=== PATIENT | female | born 1985 | race Caucasian/White ===

== ENCOUNTER 2017-04-25 06:24 | Emergency (ER) | payer MEDICAID, OTHER ==
[~2017-04-25] VITALS: Ht 144.8 cm; Wt 89.0 kg
[~2017-04-25 06:24] MED LIST: IBUP400T22 PO; NITR-58 PO; PHEN-538 PO
[2017-04-25 06:26] VITALS: Ht 144.8 cm; Wt 89.0 kg
[2017-04-25] MEDS ORDERED: SOD CHLORIDE 0.9% 1,000 ML IV STA (06:47)
[2017-04-25] MEDS ORDERED: KETOROLAC 30 MG INJ IV STA (06:47)
--- NOTE | 2017-04-25 06:54 | ERD ---
ER Documentation Chief Complaint Date/Time DATE: 04/25/17 TIME: 06:49 Chief Complaint back pain and bodyaches x 2 days HPI 31-year-old female presents to the emergency department complaining of generalized myalgias for the past 48 hours. She states she has had increased tiredness diffuse cramping of her upper and lower extremities, tactile fever with no shaking or chills, bilateral pulsating headache with no neck pain or changes in vision. She denies any frequency urgency or dysuria. She also complains of lower back pain but denies any changes in her bladder or bowel frequency. She denies any saddle anesthesia. She denies any trauma to her lower back. She states the pain is a dull achy sensation in the bilateral lumbar region similar to her menstrual cramps as she just began her menstrual cycle today. She also is complaining of a sore throat which is progressive worsened over the past 2 days and nonproductive cough. she denies any recent travel. She does work at [employer] has multiple sick contacts. She took an Excedrin P.M. roughly 12 hours prior to arrival. ROS All systems reviewed and are negative except as per history of present illness. PMhx/Soc Medical and Surgical Hx: pt denies Medical Hx History of Surgery: Yes () Anesthesia Reaction: No Hx Alcohol Use: No Hx Substance Use: No Hx Tobacco Use: No Smoking Status: Never smoker Physical Exam Vitals Vital Signs Date Time Temp Pulse Resp B/P Pulse Ox O2 Delivery O2 Flow Rate FiO2 04/25/17 06:26 97.9 87 16 126/69 100 Physical Exam Constitutional:Well-developed. Well-nourished. HEENT:Normocephalic. Atraumatic.Pupils were equal round reactive to light. Very dry mucous membranes. Enlargement of both tonsils with enlargement of the left tonsil and tonsillar exudates on the left. Neck: No nuchal rigidity. Left anterior lymphadenopathy. No posterior cervical spine tenderness or step-offs. Respiratory: Not using accessory muscles of respiration.Lungs were clear to auscultation bilaterally. No rhonchi. No rales. No wheezing. Cardiovascular: Regular rate regular rhythm.No murmurs. No rubs were appreciated.S1, S2 normal. Distal pulses are palpable 2+ bilaterally. GI: Abdomen was soft. Nontender. Non Distended. No pulsatile abdominal masses or bruits. No rebound. No guarding. Bowel sounds were present and normal. Muscle skeletal: Full range of motion of both the upper and lower extremities bilaterally.Normal muscle tone.No assymetrical calf tenderness or swelling. Skin: No petechia, no purpura. No lesions on the palms or the soles of the feet. No maculopapular rash. NEURO: Patient was alert, awake, orientated x3.No facial droop. Gait observed and normal with no ataxia.Speech had regular rate and rhythm. No focal neurological deficits. Procedures/MDM This is a 31-year-old female who presented to the emergency department with generalized myalgias and 3 of the 4 center criteria to suggest Streptococcus pharyngitis. The patient had IV access established by nursing staff due to clinical dehydration. She received a liter bolus of 0.9 normal saline and Toradol. The patient had no evidence of pyelonephritis. I did feel her back pain could be exacerbated by the pharyngitis as well as her dysmenorrhea. She had no signs of cauda equina syndrome, discitis or osteomyelitis. The patient was given Bicillin in the emergency department. She will be sent home with Motrin. The patient was discharged home in fair condition. They were instructed to return to the emergency department at any time if there was any worsening of their condition. The patient stated they would follow up with their PCP in the next 24-48 hours to initiate a suitable medication regimen under the care of their PCP as well as to allow their PCP to monitor any drug reactions. The patient was discharged home with prescriptions after they gave informed consent to the new medication. They were also fully informed by myself on the adverse effects and adverse drug interactions in order to provide adequate safeguards to prevent possible adverse reactions to medications. Departure Diagnosis: Primary Impression: Strep pharyngitis Additional Impression: Myalgia Condition: Fair NIKKI BOYD Apr 25, 2017 06:54
[2017-04-25] MEDS ORDERED: PENICILLIN G BENZ 1.2 MIL UNIT SYG IM ONE (07:00)
[2017-04-25 07:29] LABS: ADD UMIC YES; UR ASCORBIC ACID NEGATIVE (NEGATIVE); UR BACTERIA FEW /HPF (NONE SEEN); UR BILIRUBIN (Dip) NEGATIVE (NEGATIVE); UR BLOOD (Dip) 3+ mg/dL (NEGATIVE); UR CLARITY SLIGHTLY CLOUDY (CLEAR); UR COLOR YELLOW (YELLOW); UR GLUCOSE (Dip) NEGATIVE (NEGATIVE); UR KETONES (Dip) NEGATIVE (NEGATIVE); UR LEUKOCYTE ESTERASE (Dip) NEGATIVE Leu/ul (NEGATIVE); UR NITRITE (Dip) NEGATIVE (NEGATIVE); UR RBC > 182 /HPF (0-5); UR SQUAMOUS EPITHELIAL CELL FEW /HPF (FEW); UR TOTAL PROTEIN (Dip) NEGATIVE (NEGATIVE); UR UROBILINOGEN (Dip) NEGATIVE (NEGATIVE)
[2017-04-25 07:32] LABS: BASOPHILS % 0.8 % (0.0-2.0); EOSINOPHILS # 0.2 10^3/ul (0.0-0.5); HEMATOCRIT 35.5 % (37.0-47.0); HEMOGLOBIN 11.5 g/dl (12.0-16.0); LYMPHOCYTES # 1.7 10^3/ul (0.8-2.9); LYMPHOCYTES % 32.1 % (15.0-51.0); MEAN CORPUSCULAR HEMOGLOBIN 26.9 pg (29.0-33.0); MEAN CORPUSCULAR HGB CONC 32.4 g/dl (32.0-37.0); MEAN CORPUSCULAR VOLUME 82.9 fl (82.0-101.0); MEAN PLATELET VOLUME 10.5 fl (7.4-10.4); MONOCYTE # 0.5 10^3/ul (0.3-0.9); MONOCYTES % 8.6 % (0.0-11.0); NEUTROPHIL # 2.9 10^3/ul (1.6-7.5); NEUTROPHILS % 54.7 % (39.0-77.0); PLATELET COUNT 267 10^3/UL (140-415); RED BLOOD COUNT 4.28 10^6/ul (4.20-5.40); RED CELL DISTRIBUTION WIDTH 13.8 % (11.5-14.5); WHITE BLOOD COUNT 5.3 10^3/ul (4.8-10.8)
[2017-04-25 07:48] LABS: ALBUMIN 3.9 g/dl (3.3-4.9); ALBUMIN/GLOBULIN RATIO 1.25; BILIRUBIN,INDIRECT 0.3 mg/dl (0-1.1); BILIRUBIN,TOTAL 0.3 mg/dl (0.2-1.3); CALCIUM 8.1 mg/dl (8.4-10.2); CREATININE 0.58 mg/dl (0.44-1.00)
[2017-04-25] MEDS ORDERED: CEPH-443 PO (08:25)
[2017-04-25] MEDS ORDERED: IBUP800T25 PO (08:25)
[2017-04-25] MEDS ORDERED: CEFAZOLIN 1 GM/50 ML (PMX) 50 ML IVPB SCH (08:30)
== END 2017-04-25 11:13 | disposition home or self-care (01) ==
LOC: FTE 06:24
DX: J02.0 Streptococcal pharyngitis (principal)
CPT/HCPCS: 80053; 81001; 85025; 87086; 96372; 96374; 96375; J0561; J0690; J1885; J7030; Z7502

== ENCOUNTER 2017-04-27 21:15 | Emergency (ER) | payer OTHER ==
[~2017-04-27] VITALS: Ht 152.4 cm; Wt 88.0 kg
[~2017-04-27 21:15] MED LIST changes: +CEPH-443 PO; +IBUP800T25 PO
[2017-04-27 21:22] VITALS: Ht 152.4 cm; Wt 88.0 kg
[2017-04-27] MEDS ORDERED: ONDANSETRON (ODT) 4 MG TAB ODT STA (22:07)
[2017-04-27] MEDS ORDERED: ACETAMINOPHEN 500 MG TAB PO STA (22:07)
[2017-04-27] MEDS ORDERED: AMOX500C2 PO (22:13)
[2017-04-27] MEDS ORDERED: ONDA4TAB14 PO (22:13)
--- NOTE | 2017-04-27 22:13 | ERD ---
ER Documentation Chief Complaint Date/Time DATE: 04/27/17 TIME: 22:10 Chief Complaint sore throat w/ x 1 day HPI Patient is a 31-year-old female who presents with sore throat and left ear pain that she has presents today. Also admits to fever. Some nausea but no vomiting. Last menstrual period just finished 2 days ago. She took Excedrin earlier today. No cough. ROS All systems reviewed and are negative except as per history of present illness. Medications Home Meds Active Scripts Ibuprofen* (Ibuprofen*) 800 Mg Tablet, 800 MG PO Q8, #20 TAB Prov:DEB,NIKKI 04/25/17 Cephalexin* (Keflex*) 500 Mg Capsule, 500 MG PO QID for 10 Days, CAP Prov:DEB,NIKKI 04/25/17 Phenazopyridine Hcl* (Pyridium*) 200 Mg Tab, 200 MG PO TID Y for URINARY PAIN, # 6 TAB Prov:RAYMOND,JANENE 11/14/16 Nitrofurantoin Monohyd Macrocr* (Macrobid*) 100 Mg Capsr, 100 MG PO BID for 7 Days, CAP Prov:RAYMOND,JANENE 11/14/16 Ibuprofen* (Ibuprofen*) 400 Mg Tablet, 400 MG PO Q6H Y for PAIN, #30 TAB Prov:CAROL RIVERA PA-C 07/12/16 Allergies Allergies: Coded Allergies: No Known Allergy (Unverified , 04/25/17) PMhx/Soc History of Surgery: Yes () Anesthesia Reaction: No Hx Neurological Disorder: No Hx Respiratory Disorders: No Hx Cardiac Disorders: No Hx Psychiatric Problems: No Hx Miscellaneous Medical Probl: No Hx Alcohol Use: No Hx Substance Use: No Hx Tobacco Use: No Smoking Status: Never smoker FmHx Family History: No diabetes Physical Exam Vitals Vital Signs Date Time Temp Pulse Resp B/P Pulse Ox O2 Delivery O2 Flow Rate FiO2 04/27/17 21:22 100.8 104 20 121/77 99 Physical Exam INITIAL VITAL SIGNS: Reviewed by me GENERAL: Awake, alert and oriented x 4, well appearing, nontoxic, speaking in full sentences. No acute distress HEAD: Atraumatic NECK: Supple. No masses. Full range of motion. No meningismus. No midline tenderness. EYES: EOMI. PERRL. EAR: No tenderness over the mastoids bilaterally. No exudates in the canals. TMs nonerythematous. NOSE: Normal nose. THROAT: Bilateral tonsillar erythema, mild edema, no exudates, uvula midline, no kissing tonsils RESPIRATORY: Clear to auscultation bilaterally. Symmetric chest wall rise. No wheezing or rales. No accessory muscle use. CV: Regular rate and rhythm. No murmurs, rubs, or gallops. ABDOMEN: Soft, non-distended. Nontender. Negative [place]. Negative McBurneys point tenderness. No CVA tenderness bilaterally. No guarding. No rebound. Results 24 hrs Current Medications Medications (Trade) Dose Ordered Sig/Juana Route PRN Reason Start Time Stop Time Status Last Admin Dose Admin Acetaminophen (Tylenol Tab) 1,000 mg ONCE STAT PO 04/27/17 22:07 04/27/17 22:08 DC Ondansetron HCl (Zofran Odt) 4 mg ONCE STAT ODT 04/27/17 22:07 04/27/17 22:08 DC Procedures/MDM She has low-grade temperature 100.8 as well as sore throat and ear pain. Ears look normal with throat is erythematous. She was given Zofran and Tylenol here in the emergency room and discharged with amoxicillin and Zofran. Patient counseled regarding my diagnostic impression and care plan. Prior to discharge all questions answered. Pt agrees with treatment plan and understands strict return precautions. Pt is instructed to follow up with primary care provider within 24-48 hours. Precautionary instructions provided including instructions to return to the ER if not improving or for any worsening or changing symptoms or concerns. Departure Diagnosis: Primary Impression: Pharyngitis Condition: Stable VICENTA GUIDRY PA-C Apr 27, 2017 22:13
== END 2017-04-27 22:40 | disposition home or self-care (01) ==
LOC: FTE 21:15
DX: J02.9 Acute pharyngitis, unspecified (principal)
CPT/HCPCS: Z7502; Z7610; 99284